=== PATIENT | male | born 2000 | race Caucasian/White ===

== ENCOUNTER 2022-10-02 04:39 | Emergency (ER) | payer BC ==
--- NOTE | 2022-10-03 09:45 | RAD REPORT ---
EXAM DESCRIPTION: Ankle Right 3 View XR Right Ankle 3 Views CLINICAL HISTORY: Pain COMPARISON: None. TECHNIQUE: Right Ankle 3 Views FINDINGS: No fracture or dislocation. No significant sclerotic/lytic bone lesion. Joint spaces show no significant narrowing. Small right tibiotalar joint effusion. Soft tissues unremarkable. IMPRESSION: Small right tibiotalar joint effusion. Electronically signed by: Ian Denny MD 10/02/2022 5:33 AM CDT Due to temporary technical issues with the PACS/Fluency reporting system, reports are being signed by the in house radiologists without review as a courtesy to insure prompt reporting. The interpreting radiologist is fully responsible for the content of the report.
--- NOTE | 2022-10-14 17:18 | EDPHYS ---
Physician Documentation [facility] Name: Dl Man Age: 21 yrs Sex: Male : 2000 Arrival Date: 10/02/2022 Time: 04:40 Bed 5 Private MD: ED Physician Corey Rey HPI: 10/02 04:42 This 21 yrs old Male presents to ER via Unassigned with complaints of right mika ankle sprain. 04:42 The patient presents with decreased range of motion, an injury. The complaints affect mika the right ankle, right ankle. Onset: The symptoms/episode began/occurred just prior to arrival. Context: The problem was sustained at work. Associated signs and symptoms: The patient has no apparent associated signs or symptoms. Modifying factors: The symptoms are alleviated by elevation of extremity, the symptoms are aggravated by weight bearing, movement. Severity of symptoms: At their worst the symptoms were mild, moderate, in the emergency department the symptoms have improved, mildly. The patient has not experienced similar symptoms in the past. Historical: - Allergies: 04:47 No Known Allergies; vc1 - Home Meds: 04:47 None [Active]; vc1 - PMHx: 04:47 None; vc1 - PSHx: 04:47 None; vc1 - Immunization history:: Client reports having NOT received the Covid vaccine. - Social history:: Smoking status: Patient denies any tobacco usage or history of. - Family history:: not pertinent. ROS: 04:42 Constitutional: Negative for fever, chills, and weight loss, Eyes: Negative for injury, mika pain, redness, and discharge, ENT: Negative for injury, pain, and discharge, Neck: Negative for injury, pain, and swelling, Cardiovascular: Negative for chest pain, palpitations, and edema, Respiratory: Negative for shortness of breath, cough, wheezing, and pleuritic chest pain, Abdomen/GI: Negative for abdominal pain, nausea, vomiting, diarrhea, and constipation, Back: Negative for injury and pain, : Negative for injury, bleeding, discharge, and swelling, Skin: Negative for injury, rash, and discoloration, Neuro: Negative for headache, weakness, numbness, tingling, and seizure, Psych: Negative for depression, anxiety, suicide ideation, homicidal ideation, and hallucinations, Allergy/Immunology: Negative for hives, rash, and allergies, Endocrine: Negative for neck swelling, polydipsia, polyuria, polyphagia, and marked weight changes, Hematologic/Lymphatic: Negative for swollen nodes, abnormal bleeding, and unusual bruising. 04:42 MS/extremity: Positive for injury or acute deformity, decreased range of motion, pain, of the right ankle. Exam: 04:42 Constitutional: This is a well developed, well nourished patient who is awake, alert, mika and in no acute distress. Head/Face: Normocephalic, atraumatic. Eyes: Pupils equal round and reactive to light, extra-ocular motions intact. Lids and lashes normal. Conjunctiva and sclera are non-icteric and not injected. Cornea within normal limits. Periorbital areas with no swelling, redness, or edema. ENT: Nares patent. No nasal discharge, no septal abnormalities noted. Tympanic membranes are normal and external auditory canals are clear. Oropharynx with no redness, swelling, or masses, exudates, or evidence of obstruction, uvula midline. Mucous membranes moist. Neck: Trachea midline, no thyromegaly or masses palpated, and no cervical lymphadenopathy. Supple, full range of motion without nuchal rigidity, or vertebral point tenderness. No Meningismus. Chest/axilla: Normal chest wall appearance and motion. Nontender with no deformity. No lesions are appreciated. Cardiovascular: Regular rate and rhythm with a normal S1 and S2. No gallops, murmurs, or rubs. Normal PMI, no JVD. No pulse deficits. Respiratory: Lungs have equal breath sounds bilaterally, clear to auscultation and percussion. No rales, rhonchi or wheezes noted. No increased work of breathing, no retractions or nasal flaring. Abdomen/GI: Soft, non-tender, with normal bowel sounds. No distension or tympany. No guarding or rebound. No evidence of tenderness throughout. Back: No spinal tenderness. No costovertebral tenderness. Full range of motion. Male : Normal genitalia with no discharge or lesions. Skin: Warm, dry with normal turgor. Normal color with no rashes, no lesions, and no evidence of cellulitis. Neuro: Awake and alert, GCS 15, oriented to person, place, time, and situation. Cranial nerves II-XII grossly intact. Motor strength 5/5 in all extremities. Sensory grossly intact. Cerebellar exam normal. Normal gait. Psych: Awake, alert, with orientation to person, place and time. Behavior, mood, and affect are within normal limits. 04:42 Musculoskeletal/extremity: Extremities: grossly normal except: noted in the right ankle: decreased ROM, pain, ROM: intact in all extremities, Circulation is intact in all extremities. Compartment Syndrome exam of affected extremity: is normal. Weight bearing: is unable to bear weight, DVT Exam: negative Homans' sign noted on exam, no appreciated bluish discoloration, no erythema, no increased warmth, pain, swelling, tenderness. 04:42 Musculoskeletal/extremity: Sensation intact. Vital Signs: 04:47 BP 110 / 68; Pulse 65; Resp 18; Temp 98.2; Pulse Ox 99% ; Weight 72.57 kg; Height 5 ft. vc1 8 in. ; Pain 4/10; 04:47 Body Mass Index 24.33 (72.57 kg, 172.72 cm) vc1 04:47 Pain Scale: Adult vc1 MDM: 04:47 Differential diagnosis: fracture, sprain, arthritis, gout. Data reviewed: vital signs, [facility] nurses notes, radiologic studies. Consideration of Admission/Observation Escalation of care including admission/observation considered. I considered the following discharge prescriptions or medication management in the emergency department Medications were administered in the Emergency Department. See MAR. Independent interpretation of the following test(s) in the Emergency Department X-Ray: My interpretation is no fracture. Historians other than the Patient: EMS: [email or web address] ems. Care significantly affected by the following chronic conditions: none. 04:56 Patient medically screened. [facility] 10/02 04:52 Order name: Walking boot; Complete Time: 05:33 mika 10/02 04:52 Order name: Ice pack; Complete Time: 05:33 mika 10/02 04:41 Order name: Ankle Right 3 View XRAY mika Administered Medications: No medications were administered Disposition Summary: 10/02/22 05:12 Discharge Ordered Location: Home mika Problem: new mika Symptoms: have improved mika Condition: Stable mika Diagnosis - Sprain of calcaneofibular ligament of right ankle mika - Sprain of tibiofibular ligament of right ankle mika - Sprain of unspecified ligament of right ankle, initial encounter mika Followup: mika - With: Private Physician - When: 2 - 3 days - Reason: Recheck today's complaints, Continuance of care, Re-evaluation by your physician Followup: mika - With: - When: 2 - 3 days - Reason: Recheck today's complaints, Re-evaluation by your physician Discharge Instructions: - Ankle Sprain, [id number] mika - Ankle Sprain mika - Discharge Summary Sheet mika Forms: - Prescription Opioid Use mika - Antibiotic Education mika - Thank You Letter mika - Medication Reconciliation Form mika Signatures: Dispatcher [employer] Corey Cerda MD MD cha Calcote, Vanessa RN RN vc1
--- NOTE | 2022-10-14 17:18 | ER ---
Nurse's Notes [facility] Name: Dl Man Age: 21 yrs Sex: Male : 2000 Arrival Date: 10/02/2022 Time: 04:40 Bed 5 Private MD: Diagnosis: Sprain of calcaneofibular ligament of right ankle;Sprain of tibiofibular ligament of right ankle;Sprain of unspecified ligament of right ankle, initial encounter Presentation: 10/02 04:47 Chief complaint: Patient states: "I stepped off and my ankle gave out I heard 3 loud vc1 pops.". Coronavirus screen: Vaccine status: Patient reports being unvaccinated. Client denies travel out of the [place] in the last 14 days. At this time, the client does not indicate any symptoms associated with coronavirus-19. Ebola Screen: Patient negative for fever greater than or equal to 101.5 degrees Fahrenheit, and additional compatible Ebola Virus Disease symptoms Patient denies exposure to infectious person. Patient denies travel to an Ebola-affected area in the 21 days before illness onset. No symptoms or risks identified at this time. Initial Sepsis Screen: Does the patient meet any 2 criteria? No. Patient's initial sepsis screen is negative. Does the patient have a suspected source of infection? No. Patient's initial sepsis screen is negative. Risk Assessment: Do you want to hurt yourself or someone else? Patient reports no desire to harm self or others. Onset of symptoms was October 02, 2022. 04:47 Acuity: DIANE 3 vc1 04:47 Method Of Arrival: EMS: [facility] vc1 Triage Assessment: 04:52 General: Appears in no apparent distress. uncomfortable, Behavior is calm, cooperative, vc1 appropriate for age. Pain: Complains of pain in right ankle Pain does not radiate. Pain currently is 4 out of 10 on a pain scale. Historical: - Allergies: 04:47 No Known Allergies; vc1 - Home Meds: 04:47 None [Active]; vc1 - PMHx: 04:47 None; vc1 - PSHx: 04:47 None; vc1 - Immunization history:: Client reports having NOT received the Covid vaccine. - Social history:: Smoking status: Patient denies any tobacco usage or history of. - Family history:: not pertinent. Screenin:45 [facility] ED Fall Risk Assessment (Adult) History of falling in the last 3 months, vc1 including since admission Yes- single mechanical fall (1 pt) Confusion or Disorientation Yes (5 pts) Intoxicated or Sedated Yes (3 pts) Impaired Gait Yes (1 pt) Mobility Assist Device Used Yes (1 pt) Altered Elimination Yes (1 pt) Score/Fall Risk Level 3 or more points = High Risk Oriented to surroundings, Maintained a safe environment, Educated pt \\T\\ family on fall prevention, incl call for assistance when getting out of bed. Abuse screen: Denies threats or abuse. Nutritional screening: No deficits noted. Tuberculosis screening: No symptoms or risk factors identified. Vital Signs: 04:47 BP 110 / 68; Pulse 65; Resp 18; Temp 98.2; Pulse Ox 99% ; Weight 72.57 kg; Height 5 ft. vc1 8 in. ; Pain 4/10; 04:47 Body Mass Index 24.33 (72.57 kg, 172.72 cm) vc1 04:47 Pain Scale: Adult vc1 ED Course: 04:40 Patient arrived in ED. mika 04:41 Corey Rey MD is Attending Physician. mika 04:47 Arm band placed on right wrist. vc1 04:52 Triage completed. vc1 04:52 Patient has correct armband on for positive identification. Bed in low position. Pulse vc1 ox on. NIBP on. 05:00 Ankle Right 3 View XRAY In Process Unspecified. EDTN 05:12 Colby Ugarte MD is Referral Physician. mika 05:33 No provider procedures requiring assistance completed. IV discontinued, intact, ll3 bleeding controlled, No redness/swelling at site. Pressure dressing applied. Administered Medications: No medications were administered Medication: 04:52 VIS not applicable for this client. vc1 Outcome: 05:12 Discharge ordered by . mika 05:33 Discharged to home ambulatory. ll3 05:33 Condition: stable 05:33 Discharge instructions given to patient, Instructed on discharge instructions, follow up and referral plans. Demonstrated understanding of instructions, follow-up care. 05:34 Patient left the ED. ll3 Signatures: Dispatcher [employer] EDTN Corey Rey MD MD cha Loubet, Lynsea, RN RN ll3 Calcote, Blank, RN RN vc1
== END 2022-10-02 05:34 | disposition home or self-care (01) ==
LOC: ER 04:39
DX: S93.411A Sprain of calcaneofibular ligament of right ankle, initial encounter (principal); S93.431A Sprain of tibiofibular ligament of right ankle, initial encounter
CPT/HCPCS: 99283

== ENCOUNTER 2024-11-04 20:28 | Observation (INO) | payer BC, OTHER, SELFPAY ==
[2024-11-04 21:03] LABS: Absolute Eosinophils 0.2 K/uL (0-0.5); Absolute Lymphocytes (CBC) 2.4 K/uL (0.7-4.9); Absolute Monocytes 0.6 K/uL (0.1-1.3); Absolute Neutrophil 4.5 K/uL (1.8-8.0); Basophils % 0.5 % (0-1.3); Eosinophils % 3.2 % (0-4.4); Hematocrit 42.2 % (39.6-49.0); Hemoglobin 15.5 g/dL (13.6-17.9); Lymphocytes % 30.8 % (15.3-44.8); MCH 31.3 pg (27.0-35.0); MCHC 36.7 g/dL (32.0-36.0); MCV 85.1 fL (80-100); MPV 8.9 fL (7.6-11.3); Monocytes % 7.2 % (3.3-12.3); Neutrophils % 58.3 % (41.7-73.7); Platelets 233 thou/uL (152-406); RBC Red Blood Cell Count 4.96 M/uL (4.33-5.43); Red Cell Distribution Width 12.8 % (12.1-15.2)
[2024-11-04] MEDS ORDERED: NA CHLORIDE 0.9% 2,000 ML ONE (21:03)
[2024-11-04 21:08] LABS: PT Prothrombin Time 11.4 SECONDS (10-13.0); PTT, Activated Partial Thromb 28.1 SECONDS (27.2-37.4)
[2024-11-04 21:16] LABS: ALT/SGPT 22 U/L (16-61); Albumin 3.3 g/dL (3.4-5.0); Albumin/Globulin Ratio 1.5 (1.1-1.8); Alkaline Phosphatase 57 U/L (45-117); Anion Gap 6.9 mEq/L (5.0-15.0); BUN Blood Urea Nitrogen 10 mg/dL (7-18); Bicarbonate 25 mEq/L (21-32); Bilirubin Total 0.6 mg/dL (0.2-1.0); Globulin 2.2 g/dL (2.3-3.5); Glomerular Filtration Rate 128 ml/min (=/>90); Glucose Level 66 mg/dL (74-106); Protein, Total 5.5 g/dL (6.4-8.2); Sodium Level 142 mEq/L (136-145)
[2024-11-04 21:27] LABS: AST/SGOT 16 U/L (15-37); Bilirubin Direct < 0.2 mg/dL (0-0.2); Bilirubin Indirect, Calculated 0.4 mg/dL (0.2-0.8); Potassium 2.9 mEq/L (3.5-5.1)
--- NOTE | 2024-11-04 22:15 | RAD REPORT ---
EXAM: CT Head Brain Wo Cont HISTORY: AMS COMPARISON: None TECHNIQUE: Multiple contiguous axial images were obtained for a CT of the brain without contrast. Sag ittal and coronal reformats were performed. One or more of the following dose reduction techniques were used: Automated exposure control, adjus tment of the mA and kV according to patient size, and iterative reconstruction. Unless otherwise specified, incidental findings do not require dedicated imaging follow-up. FINDINGS: No evidence of hydrocephalus, intracranial hemorrhage, or extra-axial fluid collection. The brain is normal in morphology. The calvarium is intact. Scattered paranasal sinus mucosal thickening with left mastoid air-fluid lev el. Mastoid air cells are essentially clear. IMPRESSION: No evidence of acute intracranial abnormality.
[2024-11-04 22:46] LABS: Specific Gravity 1.008 (1.005-1.030); Urine Bilirubin NEGATIVE (Negative); Urine Blood Negative (Negative); Urine Clarity Clear (Clear); Urine Color Colorless (Yellow); Urine Glucose NEGATIVE (Negative); Urine Ketones NEGATIVE (Negative); Urine Microscopic Reflex YN NO UMIC; Urine Nitrite NEGATIVE (Negative); Urine Protein NEGATIVE (Negative); Urine Urobilinogen Normal (Normal); Urine pH 7.5 (5.0-7.0)
[2024-11-04 22:48] LABS: Barbiturates NEGATIVE (NEGATIVE); Benzodiazepines NEGATIVE (NEGATIVE); Cocaine NEGATIVE (NEGATIVE); METHAMPHETAM NEGATIVE (NEGATIVE); Methadone NEGATIVE (NEGATIVE); Opiates NEGATIVE (NEGATIVE); Phencyclidine NEGATIVE (NEGATIVE); THC Cannibis NEGATIVE (NEGATIVE)
[2024-11-04 22:54] LABS: Thyroid Stimulating Hormone 0.953 uIU/mL (0.358-3.740)
[2024-11-05] MEDS ORDERED: POTASSIUM 25 MEQ EFFERV TAB ONE (00:02)
--- NOTE | 2024-11-05 01:24 | RAD REPORT ---
EXAM: CT Angiography Neck With Intravenous Contrast CLINICAL HISTORY: The patient is 24 years old and is Male; dysarthria TECHNIQUE: Routine carotid CT angiography protocol was performed with intravenous contrast. NASCE T criteria using the distal ICAs for comparison were used for evaluation of stenoses. Sagittal and coronal reformatted images were created and reviewed. This CT exam was performed using one or m ore of the following dose reduction techniques: automated exposure control, adjustment of the mA and/or kV according to patient size, and/or use of iterative reconstruction technique. MIP reconstr ucted images were created and reviewed. COMPARISON: None. FINDINGS: VASCULATURE: Right common carotid artery: Unremarkable. No occlusion or significant stenosis. No dissectio n. Right internal carotid artery: Unremarkable. Extracranial segment is patent with no occlusion o r significant stenosis. No dissection. Right external carotid artery: Unremarkable. No occlusion. Right vertebral artery: Unremarkable. No occlusion or significant stenosis. No dissection. Left common carotid artery: Unremarkable. No occlusion or significant stenosis. No dissection . Left internal carotid artery: Unremarkable. Extracranial segment is patent with no occlusion or significant stenosis. No dissection. Left external carotid artery: Unremarkable. No occlusion. Left vertebral artery: Unremarkable. No occlusion or significant stenosis. No dissection. NECK: Bones/joints: Unremarkable. No acute fracture. Soft tissues: Unremarkable. Lung apices: Clear. CAROTID STENOSIS REFERENCE USING NASCET CRITERIA: % ICA stenosis = (1 - narrowest ICA diameter/diameter of distal cervical ICA) x 100. Mild - <50% stenosis. Moderate - 50-69% stenosis. Severe - 70-94% stenosis. Near occlusion - 95-99% stenosis. Occluded - 100% stenosis. * A single impression for all exams can be found at the end of this report EXAM: CT Angiography Head With Intravenous Contrast CLINICAL HISTORY: The patient is 24 years old and is Male; dysarthria TECHNIQUE: Axial computed tomographic angiography images of the head with intravenous contrast. S agittal and coronal reformatted images were created and reviewed. This CT exam was performed using one or more of the following dose reduction techniques: automated exposure control, adjustmen t of the mA and/or kV according to patient size, and/or use of iterative reconstruction technique. MIP reconstructed images were created and reviewed. COMPARISON: No relevant prior studies available. FINDINGS: Right internal carotid artery: No acute findings. Intracranial segment is patent with no signif icant stenosis. No aneurysm. Right anterior cerebral artery: Unremarkable. No occlusion or significant stenosis. No aneury sm. Right middle cerebral artery: Unremarkable. No occlusion or significant stenosis. No aneurysm . Right posterior cerebral artery: Unremarkable. No occlusion or significant stenosis. No aneur ysm. Right vertebral artery: Unremarkable as visualized. Left internal carotid artery: No acute findings. Intracranial segment is patent with no signifi cant stenosis. No aneurysm. Left anterior cerebral artery: Unremarkable. No occlusion or significant stenosis. No aneurys m. Left middle cerebral artery: Unremarkable. No occlusion or significant stenosis. No aneurysm. Left posterior cerebral artery: Unremarkable. No occlusion or significant stenosis. No aneury sm. Left vertebral artery: Unremarkable as visualized. Basilar artery: Unremarkable. No occlusion or significant stenosis. No aneurysm. * A single impression for all exams can be found at the end of this report IMPRESSION: CT Angiography Neck With Intravenous Contrast: No significant stenosis. No dissection or occlusion. CT Angiography Head With Intravenous Contrast: No occlusion or significant stenosis. No aneurysm. Electronically signed by: Sim Kwok MD 11/05/2024 01:20 AM CDT RP 8 Due to temporary technical issues with the PACS/DATY reporting system, reports are being carlos d by the in-house radiologist without review as a courtesy to ensure prompt reporting the interpreting radiologist is fully responsible for the content of the report. Transcribed Date/Time: 11/05/2024 1:24 AM
--- NOTE | 2024-11-05 01:31 | EDPHYS ---
Physician Documentation [facility] Name: Dl Man Age: 24 yrs Sex: Male : 2000 Arrival Date: 11/04/2024 Time: 20:28 Bed 19 Private MD: ED Physician Gerry Baker HPI: 11/04 20:35 This 24 yrs old Male presents to ER via Unassigned with complaints of Altered sp4 Mental Status. 11/05 01:31 24-year-old male presents with near syncopal episode and episode of unresponsiveness at sp4 home after which time he has developed stuttering speech and wobbly gait. Patient denied drug use. Historical: - Allergies: 11/04 20:30 No Known Allergies; ha1 - Home Meds: 11/05 07:28 escitalopram oxalate 20 mg oral tablet daily [Active]; hydroxyzine HCl 25 mg Oral iw tablet every day at bedtime [Active]; - PMHx: 11/04 20:30 Anxiety; Hyperthyroidism; ha1 - Immunization history:: Adult Immunizations up to date. - Infectious Disease History:: Denies. - Social history:: Smoking status: Reported history of juuling and/or vaping. - Family history:: not pertinent. ROS: 11/05 01:31 Constitutional: Negative for fever, chills, and weight loss, positive near syncopal sp4 episode, positive generalized weakness, positive acute stuttering, positive wobbly gait All other systems are negative, Exam: 01:31 Constitutional: This is a well developed, well nourished patient who is awake, alert, sp4 and in no acute distress. Head/Face: Normocephalic, atraumatic. Eyes: Pupils equal round and reactive to light, extra-ocular motions intact. Lids and lashes normal. Conjunctiva and sclera are not injected. Cornea within normal limits. Periorbital areas with no swelling, redness, or edema. ENT: Nares patent. No nasal discharge, no septal abnormalities noted. Tympanic membranes are normal and external auditory canals are clear. Oropharynx with no redness, swelling, or masses, exudates, or evidence of obstruction, uvula midline. Mucous membranes moist. Neck: Trachea midline, no thyromegaly or masses palpated, and no cervical lymphadenopathy. Supple, full range of motion without nuchal rigidity, or vertebral point tenderness. Chest/axilla: Normal chest wall appearance and motion. Nontender with no deformity. No lesions are appreciated. Cardiovascular: Regular rate and rhythm with a normal S1 and S2. No gallops, murmurs, or rubs. Normal PMI, no JVD. No pulse deficits. Respiratory: Lungs have equal breath sounds bilaterally, clear to auscultation and percussion. No rales, rhonchi or wheezes noted. No increased work of breathing, no retractions or nasal flaring. Abdomen/GI: Soft, with normal bowel sounds. No distension or tympany. No guarding or rebound. No evidence of tenderness throughout. Back: No spinal tenderness. No costovertebral tenderness. Skin: Warm, dry with normal turgor. Normal color with no rashes, no lesions, and no evidence of cellulitis. MS/ Extremity: Pulses equal, no cyanosis. Neurovascular intact. Full, normal range of motion. Neuro: Awake and alert, GCS 15, oriented to person, place, time, and situation. Cranial nerves II-XII grossly intact. Motor strength 5/5 in all extremities. Sensory grossly intact. Psych: Awake, alert, with orientation to person, place and time. Behavior, mood, and affect are within normal limits 01:32 ECG was reviewed by the Attending Physician. EKG 2031 normal sinus rhythm rate 74 sp4 Vital Signs: 11/04 20:30 BP 135 / 86; Pulse 70; Resp 14 S; Temp 98.8(O); Pulse Ox 98% on R/A; Weight 63.5 kg; ha1 Height 5 ft. 8 in. ; 21:30 BP 119 / 71; Pulse 63; Resp 18; Pulse Ox 100% on R/A; kj2 22:30 BP 121 / 68; Pulse 63; Resp 18; Pulse Ox 100% on R/A; kj2 11/05 00:37 BP 118 / 58; Pulse 66; Resp 17; Temp 98.8; Pulse Ox 99% ; Pain 0/10; bm8 04:14 BP 112 / 69; Pulse 66; Resp 17; Temp 98.5; Pulse Ox 100% ; Pain 0/10; bm8 11/04 20:30 Body Mass Index 21.29 (63.50 kg, 172.72 cm) ha1 11/05 00:37 Pain Scale: Adult bm8 04:14 Pain Scale: Adult bm8 NIH Stroke Scale Scores: 01:24 NIHSS Score: 1 sp4 Jh Coma Score: 00:37 Eye Response: spontaneous(4). Motor Response: obeys commands(6). Verbal Response: bm8 oriented(5). Total: 15. 01:31 Eye Response: spontaneous(4). Motor Response: obeys commands(6). Verbal Response: sp4 oriented(5). Total: 15. 04:14 Eye Response: spontaneous(4). Motor Response: obeys commands(6). Verbal Response: bm8 oriented(5). Total: 15. MDM: 11/04 20:42 Medical Screening Exam initiated sp4 11/05 01:24 ED course: CT angio - Basilar artery: Unremarkable. No occlusion or significant sp4 stenosis. No aneurysm. * A single impression for all exams can be found at the end of this report IMPRESSION: CTAngiography Neck With Intravenous Contrast: No significant stenosis. No dissection or occlusion. CTAngiography Head With Intravenous Contrast: No occlusion or significant stenosis. No aneurysm. Electronically signed by: Sim Kwok MD 11/05/2024 01:20. 01:33 Differential Diagnosis: CVA, electrolyte abnormality, alcohol intoxication, sp4 hypoglycemia, intracranial bleed, overdose. Data reviewed: vital signs, nurses notes, EMS record, lab test result(s), EKG, radiologic studies, CT scan, plain films. Consideration of Admission/Observation Patient was admitted/placed on observation. Escalation of care including admission/observation considered. Management of patient was discussed with the following: Hospitalist: Eulogio FERNANDEZ . Irrigation Foreman: Florinda FERNANDEZ . ED course: EKG normal, CT angio normal, workup overall normal, except was mild hypokalemia, patient stable for admission for further evaluation. Neurology Dr. Neely was consulted. 11/04 20:36 Order name: Acetaminophen; Complete Time: 23:07 sp4 11/04 20:36 Order name: Basic Metabolic Panel; Complete Time: 23:07 sp4 11/04 20:36 Order name: CBC with Diff; Complete Time: 21:15 4 11/04 20:36 Order name: ETOH Level; Complete Time: 23:07 4 11/04 20:36 Order name: Hepatic Function; Complete Time: 23:07 4 11/04 20:36 Order name: PT-INR; Complete Time: 21:15 4 11/04 20:36 Order name: Ptt, Activated; Complete Time: 21:15 4 11/04 20:36 Order name: Salicylate; Complete Time: 21:15 4 11/04 20:36 Order name: Urinalysis w/ reflexes; Complete Time: 23:07 4 11/04 20:36 Order name: Urine Drug Screen; Complete Time: 23:07 4 11/04 21:20 Order name: TSH sp4 11/04 21:20 Order name: T4 Free 4 11/05 02:03 Order name: CBC with Automated Diff EDMS 11/05 02:03 Order name: CBC with Automated Diff EDMS 11/05 02:03 Order name: Comprehensive Metabolic Panel EDMS 11/05 02:03 Order name: Comprehensive Metabolic Panel EDMS 11/05 02:11 Order name: Hemoglobin A1c EDMS 11/05 02:13 Order name: Vitamin B12 Level EDMS 11/05 07:48 Order name: Glucose, Ancillary Testing EDMS 11/05 09:47 Order name: Basic Metabolic Panel EDMS 11/05 09:47 Order name: Phosphorus EDMS 11/05 09:47 Order name: Magnesium EDMS 11/04 20:36 Order name: CT Head Brain wo Cont; Complete Time: 23:07 4 11/04 23:25 Order name: CT Head Angio sp4 11/04 23:25 Order name: CT Neck Angio sp4 11/05 02:09 Order name: Brain With Cont EDMS 11/05 02:09 Order name: Echo with Doppler EDMS 11/05 10:52 Order name: MRI EDMS 11/05 02:03 Order name: CONS Physician Consult EDMS 11/05 02:10 Order name: Speech Therapy Consult EDMS 11/04 20:36 Order name: EKG - Nurse/Tech; Complete Time: 20:47 4 11/04 20:36 Order name: IV Saline Lock; Complete Time: 20:49 4 11/04 20:36 Order name: Labs collected and sent; Complete Time: 20:47 sp4 11/04 20:36 Order name: Suicide Screening ([place]); Complete Time: 00:37 sp4 EC/14 20:32 Rate is 74 beats/min. Rhythm is regular, Normal Sinus Rhythm. QRS [place] is Normal. MO sp4 interval is normal. QRS interval is normal. QT interval is normal. No Q waves. T waves are Normal. No ST changes noted. Clinical impression: No evidence of ischemia. Interpreted by me. Reviewed by me. Administered Medications: 21:26 Drug: NS 0.9% IV 1000 ml IV at 1000 ml once; to be given as a bolus over 60 minutes kj2 Route: IV; Rate: 1000 ml; Site: right antecubital; 11/05 00:36 Follow up: Response: No adverse reaction; IV Status: Completed infusion bm8 11/04 21:26 Drug: NS 0.9% IV 1000 ml IV at 1 bolus Per protocol; to be given as a bolus over 60 kj2 minutes Route: IV; Rate: 1 bolus; Site: right antecubital; 11/05 00:36 Follow up: Response: No adverse reaction; IV Status: Completed infusion bm8 00:04 Drug: Potassium PO Effervescent Tablet 50 mEq PO once; dissolve in 4 ounces of water or kj2 juice Route: PO; 00:36 Follow up: Response: No adverse reaction bm8 Disposition Summary: 11/05/24 01:31 Hospitalization Ordered Notes: Hospitalization Status: Observation sp4 Provider: Jamshid Krishnan sp4 Condition: Stable sp4 Problem: new sp4 Symptoms: have improved sp4 Bed/Room Type: Standard sp4 Location: [facility] ER HOLD(11/05/24 13:56) Room Assignment: ERHOLD-(11/05/24 13:56) Diagnosis - Near syncope, acute dysarthria, acute balance disorder sp4 Forms: - Medication Reconciliation Form sp4 - SBAR form sp4 - Leadership Thank You Letter sp4 NIH Stroke Scale - NIH Stroke Score Date: 11/05/2024 Time: 01:24 Total Score = 1 10. Dysarthria (speech clarity - read or repeat words) - 1(Mild to Moderate) 11. Extinction and Inattention (visual/tactile/auditory/spatial/personal) - 0(No abnormality) 1a. Level of Consciousness (LOC) - 0(Alert) 1b. Level of Consciousness (LOC) (Month \T\ Age) - 0(Both) 1c. LOC Commands (Open \T\ Closes Eyes/Curtain Stitcher) - 0(Both) 2. Best Gaze (Lateral Gaze Paresis) - 0(Normal) 3. Visual Field Loss - 0(No visual loss) 4. Facial Palsy - 0(Normal) 5a. Left Arm: Motor (10-second hold) - 0(No drift) 5b. Right Arm: Motor (10-second hold) - 0(No drift) 6a. Left Leg: Motor (5-second hold - always test supine) - 0(No drift) 6b. Right Leg: Motor (5-second hold - always test supine) - 0(No drift) 7. Limb Ataxia (finger/nose \T\ heel/posadas - test with eyes open) - 0(Absent) 8. Sensory Loss (pinprick arms/legs/face) - 0(Normal) 9. Best Language: Aphasia (description/naming/reading) - 0(No aphasia) Initials: sp4 Signatures: Dispatcher [employer] EDMS Laurie Freeman Irene, MARIS POLLOCK iw Loulou Burns RN RN ss Racquel Ware RN RN haGerry Read MD MD sp4 Viola Cody Cherelle Ruano RN RN kj2 Sarkis Hernandez RN bm8 Corrections: (The following items were deleted from the chart) 11/04 20:36 20:36 ACETAMINOPHEN+C.LAB.BRZ ordered. EDMS EDMS 20:36 20:36 BASIC METABOLIC PANEL+C.LAB.BRZ ordered. EDMS EDMS 20:36 20:36 CBC+H.LAB.BRZ ordered. EDMS EDMS 20:36 20:36 ETHANOL+C.LAB.BRZ ordered. EDMS EDMS 20:36 20:36 HEPATIC FUNCTION+C.LAB.BRZ ordered. EDMS EDMS 20:36 20:36 PROTIME (+INR)+COAG.LAB.BRZ ordered. EDMS EDMS 20:36 20:36 PTT, ACTIVATED+COAG.LAB.BRZ ordered. EDMS EDMS 20:36 20:36 SALICYLATE+C.LAB.BRZ ordered. EDMS EDMS 20:36 20:36 Urinalysis+U.LAB.BRZ ordered. EDMS EDMS 20:36 20:36 URINE DRUG SCREEN+UC.LAB.BRZ ordered. EDMS EDMS 20:36 20:36 Head Brain Wo Cont+CT.RAD.BRZ ordered. EDMS EDMS 23:25 23:25 Head Angio+CT.RAD.BRZ ordered. EDMS EDMS 11/05 02:12 02:07 Vitamin B12 Level ordered. EDMS EDMS 04:33 01:31 Telemetry/MedSurg (observation) sp4 kmf 04:33 01:31 sp4 kmf 07:26 04:33 HLD1 kmf ss 13:03 04:33 [facility] ER HOLD kmf bd 13:03 07:26 ERHOLD- ss bd 13:56 13:03 Telemetry/MedSurg (observation) bd ss 13:56 13:03 406 bd ss
--- NOTE | 2024-11-05 01:31 | ER ---
Nurse's Notes [facility] Name: Dl Man Age: 24 yrs Sex: Male : 2000 Arrival Date: 11/04/2024 Time: 20:28 Bed 19 Private MD: Diagnosis: Near syncope, acute dysarthria, acute balance disorder Presentation: 11/04 20:30 Chief complaint: Chief complaint: EMS states: WENT UNRESPONSIVE WHILE SITTING ON THE ha1 COUCH , GENERALIZED WEAKNESS, CONFUSED. 20:30 Coronavirus screen: Client denies travel out of the [place] in the last 14 days. Ebola ha1 Screen: No symptoms or risks identified at this time. Initial Sepsis Screen: Does the patient meet any 2 criteria? No. Patient's initial sepsis screen is negative. Does the patient have a suspected source of infection? No. Patient's initial sepsis screen is negative. Risk Assessment: Do you want to hurt yourself or someone else? Patient reports no desire to harm self or others. Onset of symptoms was November 04, 2024. 20:30 Method Of Arrival: EMS: [facility] ha1 20:30 Acuity: DIANE 3 ha1 Triage Assessment: 20:30 General: Appears uncomfortable, Behavior is calm. Pain: Denies pain. Neuro: Level of ha1 Consciousness is awake, confused, Oriented to person, place, situation. Cardiovascular: Patient's skin is warm and dry. Respiratory: Airway is patent Respiratory effort is even, unlabored, Respiratory pattern is regular, symmetrical. GI: No signs and/or symptoms were reported involving the gastrointestinal system. Derm: Skin is pale. Historical: - Allergies: 20:30 No Known Allergies; ha1 - Home Meds: 11/05 07:28 escitalopram oxalate 20 mg oral tablet daily [Active]; hydroxyzine HCl 25 mg Oral iw tablet every day at bedtime [Active]; - PMHx: 11/04 20:30 Anxiety; Hyperthyroidism; ha1 - Immunization history:: Adult Immunizations up to date. - Infectious Disease History:: Denies. - Social history:: Smoking status: Reported history of juuling and/or vaping. - Family history:: not pertinent. Screenin:40 [facility] ED Fall Risk Assessment (Adult) History of falling in the last 3 months, kj2 including since admission No falls in past 3 months (0 pts) Confusion or Disorientation Yes (5 pts) Intoxicated or Sedated No (0 pts) Impaired Gait No (0 pts) Mobility Assist Device Used No (0 pt) Altered Elimination No (0 pt) Score/Fall Risk Level 3 or more points = High Risk Maintained a safe environment, Hourly rounding (assess needs \T\ fall precautionary measures) done, Utilized family, sitter, or virtual vice president of academic affairs as indicated. Abuse screen: Denies threats or abuse. Denies injuries from another. Nutritional screening: No deficits noted. Tuberculosis screening: No symptoms or risk factors identified. Assessment: 20:40 General: Appears in no apparent distress. Behavior is calm, cooperative. Pain: Denies kj2 pain. Neuro: Level of Consciousness is awake, alert, Oriented to person, place, time, situation. Cardiovascular: Patient's skin is warm and dry. Respiratory: Airway is patent Respiratory effort is even, unlabored. GI: No signs and/or symptoms were reported involving the gastrointestinal system. : No signs and/or symptoms were reported regarding the genitourinary system. 21:30 Reassessment: Patient appears in no apparent distress at this time. Patient and/or kj2 family updated on plan of care and expected duration. Pain level reassessed. Patient is alert, oriented x 3, equal unlabored respirations, skin warm/dry/pink. 22:30 Reassessment: Patient appears in no apparent distress at this time. Patient and/or kj2 family updated on plan of care and expected duration. Pain level reassessed. Patient is alert, oriented x 3, equal unlabored respirations, skin warm/dry/pink. 23:45 Reassessment: Patient appears in no apparent distress at this time. Patient and/or kj2 family updated on plan of care and expected duration. Pain level reassessed. Patient is alert, oriented x 3, equal unlabored respirations, skin warm/dry/pink. 11/05 00:37 Reassessment: Patient appears in no apparent distress at this time. Patient and/or bm8 family updated on plan of care and expected duration. Pain level reassessed. Patient is alert, oriented x 3, equal unlabored respirations, skin warm/dry/pink. Patient denies pain at this time. Patient states feeling better. Patient states symptoms have improved. 04:14 Reassessment: Patient appears in no apparent distress at this time. No changes from bm8 previously documented assessment. Patient and/or family updated on plan of care and expected duration. Pain level reassessed. Patient is alert, oriented x 3, equal unlabored respirations, skin warm/dry/pink. Patient denies pain at this time. Patient states feeling better. Patient states symptoms have improved. Vital Signs: 11/04 20:30 BP 135 / 86; Pulse 70; Resp 14 S; Temp 98.8(O); Pulse Ox 98% on R/A; Weight 63.5 kg; ha1 Height 5 ft. 8 in. ; 21:30 BP 119 / 71; Pulse 63; Resp 18; Pulse Ox 100% on R/A; kj2 22:30 BP 121 / 68; Pulse 63; Resp 18; Pulse Ox 100% on R/A; kj2 11/05 00:37 BP 118 / 58; Pulse 66; Resp 17; Temp 98.8; Pulse Ox 99% ; Pain 0/10; bm8 04:14 BP 112 / 69; Pulse 66; Resp 17; Temp 98.5; Pulse Ox 100% ; Pain 0/10; bm8 11/04 20:30 Body Mass Index 21.29 (63.50 kg, 172.72 cm) ha1 11/05 00:37 Pain Scale: Adult bm8 04:14 Pain Scale: Adult bm8 Jh Coma Score: 00:37 Eye Response: spontaneous(4). Motor Response: obeys commands(6). Verbal Response: bm8 oriented(5). Total: 15. 01:31 Eye Response: spontaneous(4). Motor Response: obeys commands(6). Verbal Response: sp4 oriented(5). Total: 15. 04:14 Eye Response: spontaneous(4). Motor Response: obeys commands(6). Verbal Response: bm8 oriented(5). Total: 15. NIH Stroke Scale Scores: 01:24 NIHSS Score: 1 sp4 ED Course: 11/04 20:30 Patient arrived in ED. jj6 20:35 Gerry Baker MD is Attending Physician. sp4 20:40 Patient has correct armband on for positive identification. Bed in low position. Call kj2 light in reach. Adult w/ patient. Provided Education on: call light. 20:48 Maintain EMS IV. Dressing intact. Good blood return noted. Site clean \T\ dry. Gauge \T\ rk 3 site: 20 G right AC. Flushed with 10 mL NS. 21:00 Cherelle Ruano RN is Primary Nurse. kj2 21:01 Triage completed. ha1 21:35 CT Head Brain wo Cont In Process Unspecified. EDMS 22:05 Urinalysis w/ reflexes Sent. rk3 22:05 Urine Drug Screen Sent. rk3 22:05 TSH Sent. rk3 22:05 T4 Free Sent. rk3 23:44 CT Head Angio In Process Unspecified. EDMS 23:44 CT Neck Angio In Process Unspecified. EDMS 11/05 00:08 Report given to MARIS Dockery. kj2 00:37 No provider procedures requiring assistance completed. Patient maintains SpO2 bm8 saturation greater than 95% on room air. 00:37 Client placed on continuous cardiac and pulse oximetry monitoring. NIBP monitoring bm8 applied. Pulse ox on. NIBP on. Door closed. Noise minimized. 01:30 Jamshid Krishnan MD is Hospitalizing Provider. sp4 04:14 Patient admitted, IV remains in place. bm8 04:14 Provided Education on: need for admit. bm8 07:29 Arm band placed on. iw Administered Medications: 11/04 21:26 Drug: NS 0.9% IV 1000 ml IV at 1000 ml once; to be given as a bolus over 60 minutes kj2 Route: IV; Rate: 1000 ml; Site: right antecubital; 11/05 00:36 Follow up: Response: No adverse reaction; IV Status: Completed infusion bm8 11/04 21:26 Drug: NS 0.9% IV 1000 ml IV at 1 bolus Per protocol; to be given as a bolus over 60 kj2 minutes Route: IV; Rate: 1 bolus; Site: right antecubital; 11/05 00:36 Follow up: Response: No adverse reaction; IV Status: Completed infusion bm8 00:04 Drug: Potassium PO Effervescent Tablet 50 mEq PO once; dissolve in 4 ounces of water or kj2 juice Route: PO; 00:36 Follow up: Response: No adverse reaction bm8 Medication: 11/04 21:26 VIS not applicable for this client. kj2 Outcome: 11/05 01:31 Decision to Hospitalize by Provider. sp4 07:29 Admitted to ER Hold. Please see [employer] for further documentation. 13:15 Condition: stable me1 13:26 Admitted to Tele accompanied by tech, via wheelchair, room 406, with chart, Report me1 called to faxed, receipt confirmed with [employer]. 13:26 Condition: stable 13:26 Instructed on the need for admit, 16:36 Patient left the ED. me1 NIH Stroke Scale - NIH Stroke Score Date: 11/05/2024 Time: 01:24 Total Score = 1 10. Dysarthria (speech clarity - read or repeat words) - 1(Mild to Moderate) 11. Extinction and Inattention (visual/tactile/auditory/spatial/personal) - 0(No abnormality) 1a. Level of Consciousness (LOC) - 0(Alert) 1b. Level of Consciousness (LOC) (Month \T\ Age) - 0(Both) 1c. LOC Commands (Open \T\ Closes Eyes/Agricultural Equipment Design Engineer) - 0(Both) 2. Best Gaze (Lateral Gaze Paresis) - 0(Normal) 3. Visual Field Loss - 0(No visual loss) 4. Facial Palsy - 0(Normal) 5a. Left Arm: Motor (10-second hold) - 0(No drift) 5b. Right Arm: Motor (10-second hold) - 0(No drift) 6a. Left Leg: Motor (5-second hold - always test supine) - 0(No drift) 6b. Right Leg: Motor (5-second hold - always test supine) - 0(No drift) 7. Limb Ataxia (finger/nose \T\ heel/posadas - test with eyes open) - 0(Absent) 8. Sensory Loss (pinprick arms/legs/face) - 0(Normal) 9. Best Language: Aphasia (description/naming/reading) - 0(No aphasia) Initials: sp4 Signatures: Dispatcher [employer] Madhuri Ferris, RN MARIS iw Supriya Joshi jj6 Racquel Ware RN RN ha1 Gerry Baker MD MD sp4 Ada Sandoval RN RN me1 Sarkis Hernandez RN MARIS bm8 Cherelle Ruano RN RN kj2 Leigh Noonan rk3 Corrections: (The following items were deleted from the chart) 11/04 21:01 20:55 Chief complaint: ha1 ha1
[2024-11-05] MEDS ORDERED: MORPHINE 2 MG/ML SYR IV PRN (01:57)
[2024-11-05] MEDS: D5 0.45 NS 1,000 ML IV SCH (02:00)
--- NOTE | 2024-11-05 03:26 | P.HP ---
Patient History Date of Service: 11/05/24 Reason for admission: Dysarthria History of Present Illness: 24-year-old male with a past medical history of migraines, anxiety, and hyperthyroidism presenting with dysarthria earlier tonight. Most of the history is related by his girlfriend who is at bedside along with his mother. His girlfriend states they were at home and resting on the couch. She states there was a bump on his head earlier this evening that looked almost like an insect bite. When she questioned him as to where he got the bump on his head he stared at her as if he was trying to say something but could not make it out. He denies any focal weakness, headaches, visual or auditory symptoms, fevers, chills. He states he was diagnosed with hyperthyroidism and placed on medication however he stopped taking it. The only medication he currently takes are his anxiety pills which include hydroxyzine and escitalopram. Allergies No Known Allergies Allergy (Verified 09/29/17 06:55) Home Medications: NK [No Home Meds] 09/27/17 Review of Systems General: Unremarkable Eyes: Unremarkable ENT: Unremarkable Respiratory: Unremarkable Cardiovascular: Unremarkable Gastrointestinal: Unremarkable Genitourinary: Unremarkable Musculoskeletal: Unremarkable Integumentary: Unremarkable Neurological: Change in Speech Physical Examination - Physical Exam General: Alert, In no apparent distress HEENT: Atraumatic, Normocephalic Neck: Supple Respiratory: Clear to auscultation bilaterally Cardiovascular: No edema Capillary refill: <2 Seconds Gastrointestinal: Normal bowel sounds Musculoskeletal: No clubbing Integumentary: No rashes Neurological: Normal strength at 5/5 x4 extr, Cranial nerves 3-12 intact, Abnormal speech Lymphatics: No axilla or inguinal lymphadenopathy - Studies Laboratory Data (last 24 hrs) 11/04/24 11/04/24 11/04/24 20:43 20:43 20:43 WBC 7.70 Hgb 15.5 Hct 42.2 Plt Count 233 PT 11.4 INR 1.00 APTT 28.1 Sodium 142 Potassium 2.9 L BUN 10 Creatinine 0.78 Glucose 66 L Total Bilirubin 0.6 AST 16 ALT 22 Alkaline Phosphatase 57 Assessment and Plan - Plan Dysarthria Anxiety Hypothyroidism Admit to floor Imaging reviewed Consult neurology Differentials include complex migraine and partial seizures Neurochecks every 4 hours MRI of the brain pending TSH and free T4 within normal limit Start D5 half-normal saline DVT prophylaxis with Lovenox - Advance Directives Does patient have a Living Will: No Does patient have a Durable POA for Healthcare: No
[2024-11-05] MEDS ORDERED: D5 0.45 NS 1,000 ML IV ONE (04:28)
[2024-11-05 04:47] VITALS: BMI 21.2
[2024-11-05 09:45] LABS: Anion Gap 6.2 mEq/L (5.0-15.0); Magnesium 2.2 mg/dL (1.6-2.4); Phosphorus 2.7 mg/dL (2.5-4.9); Potassium 4.2 mEq/L (3.5-5.1)
--- NOTE | 2024-11-05 10:52 | RAD REPORT ---
EXAMINATION: MRI BRAIN WITHOUT AND WITH CONTRAST CLINICAL INDICATION: Syncope TECHNIQUE: Multiplanar multisequence MR images of the brain were obtained without and with intravenous contrast. 14 cc MultiHance administered intravenously. COMPARISON: November 05, 2023 Mild to moderate abnormal signal within periventricular, deep and subcortical white matter probably i schemic changes secondary to small vessel disease Diffusion weighted/ADC mapping images do not reveal evidence of an acute infarction No abnormal enhancement within the brain visualized. Ventricles are normal caliber No extra-axial fluid collection Mild to moderate left maxillary sinusitis. IMPRESSION: No acute intracranial abnormality seen.
--- NOTE | 2024-11-05 12:50 | ECHO ---
HEIGHT: 5 ft 8 in WEIGHT: 140 lb 0 oz DATE OF STUDY: 11/05/[address]: Jamshid Krishnan MD 2-DIMENSIONAL: YES M.MODE: YES DOPPLER: YES COLOR FLOW: YES TDS: PORTABLE: YES DEFINITY: BUBBLE STUDY: YES DIAGNOSIS: RULE OUT PATENT FORAMEN OVALE CARDIAC HISTORY: CATHERIZATION: SURGERY: PROSTHETIC VALVE: PACEMAKER: MEASUREMENTS (cm) DIASTOLIC (NORMALS) SYSTOLIC (NORMALS) IVSd 0.9 (0.6-1.2) LA Diam 2.8 (1.9-4.0) LVEF 60-65% LVIDd 4.7 (3.5-5.7) LVIDs 3.3 (2.0-3.5) %FS LVPWd 0.8 (0.6-1.2) Ao Diam 2.6 (2.0-3.7) 2 DIMENSIONAL ASSESSMENT: RIGHT ATRIUM: NORMAL LEFT ATRIUM: NORMAL RIGHT VENTRICLE: NORMAL LEFT VENTRICLE: NORMAL TRICUSPID VALVE: NORMAL MITRAL VALVE: NORMAL PULMONIC VALVE: NORMAL AORTIC VALVE: NORMAL, TRACE AORTIC REGURGITATION PERICARDIAL EFFUSION: NONE AORTIC ROOT: NORMAL LEFT VENTRICULAR WALL MOTION: NORMAL DOPPLER/COLOR FLOW: NORMAL COMMENTS: 1. NORMAL LEFT VENTRICULAR SYSTOLIC FUNCTION, EJECTION FRACTION 60-65%, NORMAL WALL MOTION 2. NORMAL DIASTOLIC FUNCTION 3. NEGATIVE BUBBLE STUDY TECHNOLOGIST: KRISTINA LOPEZ
--- NOTE | 2024-11-05 15:57 | P.DS ---
Admission Date: 11/05/24 Discharge Date: 11/05/24 Disposition: DC HOME/HOME HEALTH CARE Discharge Condition: FAIR Reason for Admission: Dysarthria Hospital Course: 24-year-old patient presented with dysarthria, admitted to rule out stroke, CT head and CTA head and neck negative, MRI brain negative for any acute stroke, there some concern of small vessel disease, echo showed ejection fraction 60 to 65%, negative bubble study, when I see the patient is doing well without acute problems, he does not have any dysarthria, no weakness, no tingling or numbness, he feels ready to go home, otherwise no other acute issues going on so I am planning to discharge him to go home. When he came in last night, his potassium was low, glucose was low as well, this may be contributing to some of his symptoms. I strongly advised him to eat and drink well, closely follow-up with PCP and neurology. 1. Dysarthria: resolved 2. Anxiety: home meds 3. Hypothyroidism: f/u with PCP/ home meds 4. Hypokalemia: Better 5. Hypoglycemia: Better Subjective: No chest pain or shortness of breath. No nausea or vomiting. No abdominal pain. No obvious bleeding. Looks comfortable in the bed. No dysarthria. No weakness. No tingling or numbness. 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, no weakness of extremities, no facial weakness Vital Signs/Physical Exam: Temp Pulse Resp BP Pulse Ox 98.2 F 64 14 108/72 100 11/05/24 12:00 11/05/24 12:00 11/05/24 12:00 11/05/24 12:00 11/05/24 12:00 Laboratory Data at Discharge: WBC 7.70 thou/uL (4.3-10.9) 11/04/24 20:43 Hgb 15.5 g/dL (13.6-17.9) 11/04/24 20:43 Hct 42.2 % (39.6-49.0) 11/04/24 20:43 Plt Count 233 thou/uL (152-406) 11/04/24 20:43 PT 11.4 SECONDS (10-13.0) 11/04/24 20:43 INR 1.00 11/04/24 20:43 APTT 28.1 SECONDS (27.2-37.4) 11/04/24 20:43 Sodium 139 mEq/L (136-145) 11/05/24 09:24 Potassium 4.2 mEq/L (3.5-5.1) D 11/05/24 09:24 BUN 11 mg/dL (7-18) 11/05/24 09:24 Creatinine 0.85 mg/dL (0.70-1.30) 11/05/24 09:24 Glucose 97 mg/dL (74-106) 11/05/24 09:24 Phosphorus 2.7 mg/dL (2.5-4.9) 11/05/24 09:24 Magnesium 2.2 mg/dL (1.6-2.4) 11/05/24 09:24 Total Bilirubin 0.6 mg/dL (0.2-1.0) 11/04/24 20:43 AST 16 U/L (15-37) 11/04/24 20:43 ALT 22 U/L (16-61) 11/04/24 20:43 Alkaline Phosphatase 57 U/L (45-117) 11/04/24 20:43 Home Medications: NK [No Home Meds] 09/27/17 Diet: Regular Activity: Ad nilay Followup: Arnoldo Neely MD [ASSOCIATE-ACTIVE - CAN ADMIT] - 1 Week (f/u in 1 week) NONE,NONE [Primary Care Provider] - 2-3 Days (f/u with PCP in 3-5 days with CBC and CMP)
[2024-11-05 17:53] VITALS: BP 112/69; TEMP 98.5; O2SAT 100
== END 2024-11-05 16:40 | disposition home or self-care (01) ==
LOC: ER 20:28 → ERHOLD 11-05 01:57 → 4TH 11-05 13:47 → ERHOLD 11-05 14:00 → 4TH 11-05 14:08 → ERHOLD 11-05 14:16
PROVIDERS: ADMIT Family Medicine; ATTEND Hospitalist
DX: R47.1 Dysarthria and anarthria (principal); F41.9 Anxiety disorder, unspecified; G43.909 Migraine, unspecified, not intractable, without status migrainosus; E21.3 Hyperparathyroidism, unspecified; E16.2 Hypoglycemia, unspecified; E87.6 Hypokalemia; F17.290 Nicotine dependence, other tobacco product, uncomplicated; R55 Syncope and collapse
CPT/HCPCS: 36415; 70450; 70496; 70498; 70553; 80048; 80076; 80143; 80179; 80307; 81003; 82077; 82607; 82947; 83036; 83735; 84100; 84439; 84443; 85025; 85610; 85730; 92523; 93005; 93306; A9577; G0378; J7030; J7799; Q9967